=== PATIENT | female | born 1990 | race Caucasian/White ===

== ENCOUNTER 2020-12-23 10:00 | Inpatient (IN) | payer OTHER ==
[~2020-12-23] VITALS: Ht 162.6 cm; Wt 68.0 kg
[~2020-12-23 10:00] MED LIST: MOTRIN800 MG PO; PERCOCET 5/3251 TAB PO; PRENATAL + DHA1 EAC1 PO
== END 2020-12-31 10:07 | disposition home or self-care (01) | DRG 788 ==
LOC: SURG-SUITE 12-27 22:42 → LDR 12-27 22:42 → SURG-SUITE 12-28 01:00 → OB/GYN 01-01 10:00
PROVIDERS: ADMIT Obstetrics & Gynecology Maternal & Fetal Medicine; ATTEND Obstetrics & Gynecology Maternal & Fetal Medicine
PROC: 10D00Z1 Extraction of Products of Conception, Low, Open Approach (ICD-10-PCS; principal; 2020-12-28)
PROC: 4A1HXFZ Monitoring of Products of Conception, Cardiac Rhythm, External Approach (ICD-10-PCS; 2020-12-28)
DX: O34.211 Maternal care for low transverse scar from previous cesarean delivery (principal); O75.82 Onset (spontaneous) of labor after 37 completed weeks of gestation but before 39 completed weeks gestation, with delivery by (planned) cesarean section; Z37.0 Single live birth; Z3A.39 39 weeks gestation of pregnancy